=== PATIENT | male | born 1990 | race Caucasian/White ===

== ENCOUNTER 2023-01-15 03:29 | Observation (INO) | payer OTHER ==
--- OUTSIDE RECORDS SUMMARY | 2023-01-15 03:32 | XMS REPORT | Continuity of Care Document ---
:[address] [facility] t Address [address] [place] [address] [place] [id number] Care Team Providers Name Role Phone Asked, No Pcp Primary Care Physician Unavailable Therapy, Pcp Covid Infusion Attending Clinician Unavailable Cornell Beach MD Attending Clinician CORNELL BEACH Attending Clinician Unavailable Doctor Unassigned, [place] Attending Clinician Unavailable Bhargav DRAPER, Constance Martinez Attending Clinician SARAH SAXENA Attending Clinician Unavailable SARAH SAXENA Attending Clinician Unavailable YOUNG BOLES Attending Clinician Unavailable Payers Payer Name Policy Type Policy Effective Date Expiration Date Sour ce Number AETNAAETNA [id number] 2020 University of COMMERCIAL OUT 00:00:00 [facility] [id number] -Jenelle Formerly [facility] - [id number] 2016 OUT OF STATE 240 00:00:00 Problems Condition Condition Condition Status Onset Resolution Last Treating Co mments Source Name Details Category Date Date Treatment Clinician Date BEENA BEENA Disease Active Univers (obstructi (obstructi 7-13 it y of ve sleep ve sleep 00:00: [place] apnea) apnea) 00 [facility] Hx of left Hx of left Disease Active U nivers knee knee 7-13 ity of surgery surgery 00:00: [place] [address] Medical Branch Allergies, Adverse Reactions, Alerts Allergy Allergy Status Severity Reaction(s) Onset Inactive Treating Comm ents Source Name Type Date Date Clinician NO KNOWN Drug Active Univers ALLERGIE Class ity of S [facility] Social History Social Habit Start Date Stop Date Quantity Comments Source Exposure to Yes University of SARS-CoV-2 [facility] (event) Branch Tobacco use and 2021-02-14 2021-02-14 Never used Universit y of exposure 00:00:00 00:00:00 [facility] Alcohol intake 2021-02-14 2021-02-14 Current drinker Unive rsity of 00:00:00 00:00:00 of alcohol [facility] (finding) Branch History of 2020-09-17 Cigarette Smoker Universi ty of tobacco use 00:00:00 [facility] Sex Ass[birth year] At [birth year] [facility] 00:00:00 00:00:00 Smoking Status Start Date Stop Date Source Tobacco smoking [facility] consumption unknown Former smoker 2021-02-14 00:00:00 2021-02-14 [place] [facility] [place] 00:00:00 [facility] Medications Ordered Filled Start Stop Current Ordering Indication Dosage Frequency Signature Comments Components Source Medication Medication Date Date Medication? Clinician (SIG) Name Name casirivimab 2020- No [id number] 1200mg 1,200 mg, Univers -imdevimab 07-12 IV ity of 1200 mg in 18:15: 16:50 Infusion, [place] 60 mL NS 00 :00 ONCE, Medical MINI-BAG Administer Branc h over 20 Minutes, Lori 07/12/21 at 1315, For 1 dose
Ad manager land as an IV infusion via pump or gravity through an intravenou s line containing a sterile, in-line or add-on 0.2-micron polyethers ulfone (PES) filter. Stable 36 hours refrigerat ed; 4 hours at room temperatur e.
benzonatate Yes Method i (TESSALON) 8-23 st 100 MG 00:00: Hospita capsule 00 l benzonatate Yes Method i (TESSALON) 8-23 st 100 MG 00:00: Hospita capsule 00 l azithromyci Yes 250mg Q.5D Take 250 M ethodi n 8-[address] (ZITHROMAX) 00:00: mouth 2 Hos jennifer 250 MG 00 (two) l tablet times a day. albuterol Yes INHALE ONE Me thodi (ACCUNEB) 8-20 (1) VIAL st 2.5 mg /3 00:00: VIA Hospita mL (0.083 00 NEBULIZER l %) EVERY 2 TO nebulizer 4 HOURS solution NEEDED FOR SHORTNESS OF BREATH AND WHEEZING. azithromyci 0 Yes 250mg Q.5D Take 250 M ethodi n 8-[address] (ZITHROMAX) 00:00: mouth 2 Hos jennifer 250 MG 00 (two) l tablet times a day. budesonide Yes INHALE ONE M ethodi (PULMICORT) 8-20 (1) VIAL st 0.25 mg/2 00:00: VIA Hospita mL 00 NEBULIZER l nebulizer IN THE solution MORNING AND EVENING. methylPREDN Yes take as Met hodi ISolone 8-[address] (MEDROL 00:00: Hospita DOSEPAK) 4 00 l mg tablet ivermectin Yes TAKE 9 Metho di (STROMECTOL 8-[address] ) 3 mg 00:00: MOUTH ON Hospita tablet 00 DAY 1 AND l 9 ON DAY 3. budesonide Yes INHALE ONE M ethodi (PULMICORT) 8-20 (1) VIAL st 0.25 mg/2 00:00: VIA Hospita mL 00 NEBULIZER l nebulizer IN THE solution MORNING AND EVENING. methylPREDN Yes take as Met hodi ISolone 8-[address] (MEDROL 00:00: Hospita DOSEPAK) 4 00 l mg tablet ivermectin Yes TAKE 9 Metho di (STROMECTOL 8-[address] ) 3 mg 00:00: MOUTH ON Hospita tablet 00 DAY 1 AND l 9 ON DAY 3. albuterol Yes INHALE ONE Me thodi (ACCUNEB) 8-20 (1) VIAL st 2.5 mg /3 00:00: VIA Hospita mL (0.083 00 NEBULIZER l %) EVERY 2 TO nebulizer 4 HOURS solution NEEDED FOR SHORTNESS OF BREATH AND WHEEZING. No known No Univers medications [facility] No known No [facility] Vital Signs Vital Name Observation Time Observation Value Comments Source Systolic blood 2021-07-12 17:51:00 108 mm[Hg] Univer sity of pressure [facility] Diastolic blood 2021-07-12 17:51:00 72 mm[Hg] Unive rsity of [facility] Heart rate 2021-07-12 17:51:00 77 /min [facility] Body temperature 2021-07-12 17:51:00 36.5 Ileana [facility] Respiratory rate 2021-07-12 17:51:00 20 /min [facility] Oxygen saturation in 2021-07-12 17:51:00 93 /min [facility] Arterial blood by [facility] Pulse oximetry Branch Body height 2021-07-12 16:15:[address] [facility] Body weight 2021-07-12 16:15:[address] [facility] BMI 2021-07-12 16:15:00 34.67 kg/m2 [facility] Body height 2021-07-10 15:02:00 188 cm [facility] Body weight 2021-07-10 15:02:00 122.471 kg [facility] BMI 2021-07-10 15:02:00 34.67 kg/m2 [facility] Procedures Procedure Date / Time Performed Performing Clinician [facility] CONSENT/REFUSAL FOR 2021-07-12 05:01:00 Doctor Unassigned, No Un [facility] DIAGNOSIS AND Name [facility] TREATMENT Plan of Care Planned Activity Planned Date Details Comments Source Future Scheduled 2022-10-29 [facility] 00:09:17 (#1) [code = COVID-19 VACCINE (#1)] Future Scheduled 2022-10-29 INFLUENZA VACCINE Method [facility] Test 00:09:17 [code = INFLUENZA VACCINE] Future Scheduled 2021-09-20 [facility] 10:30:18 (1) [code = COVID-19 VACCINE (1)] Future Scheduled 2021-09-20 [facility] 10:30:18 screening (procedure) [code = 044064239] Future Scheduled 2021-09-20 INFLUENZA VACCINE Method [facility] Test 10:30:18 [code = INFLUENZA VACCINE] Encounters Start End Encounter Admission Attending Care Care Encounter Source Date/Time Date/Time Type Type Clinicians Facility Department ID 2021-07-12 2021-07-12 Nurse Therapy, Pcp Covid Infusion [facility] [id number] Univers 11:06:03 12:06:03 Visit BayleeArielip Boris PRIMARY [id number] ity of CARE [id number] [place] XI[place] [id number] Mn dical [address] [place] [address] 2021-07-12 2021-07-12 Outpatient R BAYLEE [facility] [id number] Univers 11:00:00 11:00:00 CORNELL randolph [facility] 2021-07-12 2021-07-12 Orders Doctor CHARIS [id number] Univers 00:00:00 00:00:00 Only Unassigned, HÉCTOR [id number] ity of [place] [facility] [id number] Job as [phone] [address] 2021-07-10 2021-07-10 Virtual [place], [id number] Methodi 09:56:05 11:45:59 Urgent Constance Martinez [id number] [facility] [id number] Hospit [id number] l .8 2021-06-13 2021-06-13 Outpatient R SARAH SAXENA [facility] [id number] Univers 16:00:00 16:00:00 SARAH SAXENA [facility] 2021-04-11 2021-04-11 Outpatient R JORGE SAXENACTJoshua [facility] [id number] Univers 13:30:00 13:30:00 SARAH SAXENA [facility] 2021-04-11 2021-04-11 [facility] [id number] Univers 10:00:00 10:00:00 SARAH SAXENA [facility] 2021-03-12 2021-03-12 Outpatient R JORGE SAXENACTJoshua [facility] [id number] Univers 19:30:00 19:30:00 [facility]AH [facility] 2021-03-09 2021-03-09 Outpatient R SARAH SAXENA [facility] [id number] Univers 11:00:00 11:00:00 SARAH SAXENA [facility] 2021-02-14 2021-02-14 Outpatient R JORGE SAXENACTJoshua [facility] [id number] Univers 15:00:00 15:00:00 JORGE SAXENACTJoshua [facility] 2021-01-31 2021-01-31 Outpatient R REYMUNDORAFAEL [facility] [id number] Univers 19:30: 19:30:00 [facility] 2021-01-29 2021-01-29 Outpatient R ELVI [facility] [id number] Univers 08:00:00 08:00:00 YOUNG [facility] 2021-01-17 2021-01-17 Outpatient [facility] [id number] Univers 19:30: 19:30:00 JORGE SAXENACTJoshua [facility] 2021-01-15 2021-01-15 Outpatient R [facility] [id number] Univers 15:30:00 15:30:00 [facility] 2020-12-27 2020-12-27 Outpatient R REYMUNDOJORGE HALLCTJoshua [facility] [id number] Univers 13:00:00 13:00:00 REYMUNDORAFAEL [facility] Results This patient has no known results.
[2023-01-15] MEDS ORDERED: KETOROLAC 30 MG/ML INJ ONE ×2 (04:33→11:17)
[2023-01-15] MEDS ORDERED: NA CHLORIDE 0.9% 1,000 ML ONE (04:33)
[2023-01-15] MEDS ORDERED: ONDANSETRON 4 MG/2 ML VIAL ONE ×2 (04:33→10:16)
[2023-01-15] MEDS ORDERED: MORPHINE 4 MG/ML SYR ONE (04:33)
[2023-01-15 04:46] LABS: Absolute Lymphocytes (CBC) 1.9 K/uL (0.7-4.9); Lymphocytes % 20.9 % (15.3-44.8); MCV 88.4 fL (80-100); MPV 7.3 fL (7.6-11.3); RBC Red Blood Cell Count 4.97 M/uL (4.33-5.43)
[2023-01-15 05:04] LABS: Bilirubin Total 0.3 mg/dL (0.2-1.0); Potassium 4.2 mmol/L (3.5-5.1); Protein, Total 7.3 g/dL (6.4-8.2)
[2023-01-15] MEDS ORDERED: PIPERACIL/TAZO 4.5 GM VIAL IV ONE (06:16)
[2023-01-15] MEDS ORDERED: NA CHLORIDE 0.9% 100 ML ONE (06:17)
[2023-01-15 06:41] LABS: Urine Blood Negative (Negative); Urine Glucose Negative (Negative); Urine Protein Negative (Negative); Urine pH 5.5 (5.0-7.0)
[2023-01-15 06:51] LABS: SARS-CoV-2 Antigen Rapid Res Negative (Negative)
--- NOTE | 2023-01-15 07:05 | ER ---
Nurse's Notes [facility] Name: Willis Celestin Age: 32 yrs Sex: Male : 1990 Arrival Date: 01/15/2023 Time: 03:32 Bed 5 Private MD: Diagnosis: Acute appendicitis with localized peritonitis Presentation: 01/15 03:49 Chief complaint: Patient states: I am having some pain in my right lower quadrant that kd3 started about 2 am. I took some Pepto and gas ex and have had no relief. It is sharp. Coronavirus screen: Vaccine status: Patient reports being unvaccinated. Ebola Screen: No symptoms or risks identified at this time. Initial Sepsis Screen: Does the patient meet any 2 criteria? No. Patient's initial sepsis screen is negative. Does the patient have a suspected source of infection? No. Patient's initial sepsis screen is negative. Risk Assessment: Do you want to hurt yourself or someone else? Patient reports no desire to harm self or others. Onset of symptoms was January 15, 2023. 03:49 Method Of Arrival: Ambulatory kd3 03:49 Acuity: RIO 3 kd3 Triage Assessment: 03:50 General: Appears uncomfortable, Behavior is calm, cooperative. Pain: Complains of pain kd3 in right lower quadrant. GI: Abdomen is non-distended. Historical: - Allergies: 03:50 No Known Allergies; kd3 - Home Meds: 03:50 None [Active]; kd3 - PMHx: 03:50 None; kd3 - Immunization history:: Adult Immunizations up to date. - Social history:: Smoking status: Patient denies any tobacco usage or history of. - Family history:: not pertinent. Screenin:50 Abuse screen: Denies threats or abuse. Denies injuries from another. Nutritional ha1 screening: No deficits noted. Tuberculosis screening: No symptoms or risk factors identified. 06:54 [facility] ED Fall Risk Assessment (Adult) Score/Fall Risk Level 0 - 2 = Low Risk. as6 Assessment: 03:49 General: Appears uncomfortable, Behavior is calm, cooperative. Pain: Complains of pain ha1 in abdomen Pain does not radiate. Pain currently is 10 out of 10 on a pain scale. Quality of pain is described as throbbing, Alleviated by medications. Neuro: Level of Consciousness is awake, alert, obeys commands, Oriented to person, place, time. Cardiovascular: Patient's skin is warm and dry. Respiratory: Airway is patent Respiratory effort is even, unlabored, Respiratory pattern is regular, symmetrical. GI: Abdomen is non-distended, obese, Bowel sounds present X 4 quads. Abd is soft and non tender X 4 quads. Reports constipation, nausea. : No signs and/or symptoms were reported regarding the genitourinary system. EENT: No deficits noted. No signs and/or symptoms were reported regarding the EENT system. Derm: Skin is pink, warm \T\ dry. Musculoskeletal: Range of motion: intact in all extremities. 04:49 Reassessment: Patient and/or family updated on plan of care and expected duration. Pain ha1 level reassessed. Patient is alert, oriented x 3, equal unlabored respirations, skin warm/dry/pink. Patient states symptoms have improved. 05:26 Reassessment: Patient and/or family updated on plan of care and expected duration. Pain ha1 level reassessed. Patient is alert, oriented x 3, equal unlabored respirations, skin warm/dry/pink. back from CT Patient states feeling better. Patient states symptoms have improved. 06:25 Reassessment: Patient and/or family updated on plan of care and expected duration. Pain ha1 level reassessed. Patient is alert, oriented x 3, equal unlabored respirations, skin warm/dry/pink. Patient states feeling better. Patient states symptoms have improved. Vital Signs: 03:49 BP 141 / 74; Pulse 83; Resp 19; Temp 98.7(O); Pulse Ox 98% on R/A; Weight 133.81 kg; kd3 Height 6 ft. 2 in. (187.96 cm); Pain 7/10; 04:30 BP 113 / 53; Pulse 73; Resp 18 S; Pulse Ox 98% on R/A; ha1 05:10 BP 134 / 78; Pulse 78; Resp 16 S; Pulse Ox 97% on R/A; ha1 06:54 BP 119 / 73; Pulse 81; Resp 18 S; Pulse Ox 97% on R/A; as6 03:49 Body Mass Index 37.88 (133.81 kg, 187.96 cm) kd3 ED Course: 03:32 Patient arrived in ED. ja2 03:39 Alexis Menendez MD is Attending Physician. rt 03:50 Triage completed. kd3 03:50 Arm band placed on. kd3 03:50 Patient has correct armband on for positive identification. Bed in low position. Call ha1 light in reach. Side rails up X 1. 04:14 Milka Card RN is Primary Nurse. ha1 04:15 Inserted saline lock: 20 gauge in right antecubital area, using aseptic technique. ha1 04:47 CMP Sent. ha1 04:47 Lipase Sent. ha1 04:47 CBC with Diff Sent. ha1 06:32 SARS RAPID Sent. ha1 07:04 Jesus Barnes MD is Hospitalizing Provider. rt Administered Medications: 04:35 Drug: NS 0.9% 1000 ml Route: IV; Rate: 1 bolus; Site: right antecubital; ha1 04:36 Drug: Zofran (Ondansetron) 4 mg Route: IVP; Site: right antecubital; ha1 05:00 Follow up: Response: No adverse reaction ha1 04:39 Drug: Ketorolac 30 mg Route: IVP; Site: right antecubital; ha1 05:00 Follow up: Response: No adverse reaction ha1 04:46 Drug: morphine 4 mg Route: IVP; Infused Over: 4 mins; Site: right antecubital; ha1 05:10 Follow up: Response: No adverse reaction; Pain is decreased; RASS: Alert and Calm (0) ha1 06:25 Drug: Zosyn (piperacillin-tazobactam) 4.5 grams Route: IVPB; Infused Over: 60 mins; ha1 Site: right antecubital; Outcome: 07:05 Decision to Hospitalize by Provider. rt 10:38 Patient left the ED. hb Signatures: Anna Sullivan RN RN Bernie Winter2 Edmund Renner RN RN as6 Lisseth Figueroa RN RN kd3 Milka Card RN RN ha1 Alexis Menendez MD MD rt
--- NOTE | 2023-01-15 07:05 | EDPHYS ---
Physician Documentation [facility] Name: Willis Celestin Age: 32 yrs Sex: Male : 1990 Arrival Date: 01/15/2023 Time: 03:32 Bed 5 Private MD: ED Physician Alexis Menendez HPI: 01/15 04:51 This 32 yrs old Male presents to ER via Ambulatory with complaints of Abdominal Pain, rt Constipation. 04:51 The patient presents with abdominal pain. Patient presents to the ED with right lower rt quadrant pain starting about 2 AM. It woke him up from the sleep. Sharp in nature, radiates laterally. Reports nausea without vomiting. Denies other acute complaints at this time, symptoms are moderate severity, no other aggravating or elevating factors.. Historical: - Allergies: 03:50 No Known Allergies; kd3 - Home Meds: 03:50 None [Active]; kd3 - PMHx: 03:50 None; kd3 - Immunization history:: Adult Immunizations up to date. - Social history:: Smoking status: Patient denies any tobacco usage or history of. - Family history:: not pertinent. ROS: 04:51 Constitutional: Negative for fever, chills, and weight loss, Cardiovascular: Negative rt for chest pain, palpitations, and edema, Respiratory: Negative for shortness of breath, cough, wheezing, and pleuritic chest pain, : Negative for injury, bleeding, discharge, and swelling, MS/Extremity: Negative for injury and deformity, Skin: Negative for injury, rash, and discoloration, Neuro: Negative for headache, weakness, numbness, tingling, and seizure, Psych: Negative for depression, anxiety, suicide ideation, homicidal ideation, and hallucinations. 04:51 Abdomen/GI: Positive for abdominal pain, nausea. Exam: 04:51 Constitutional: This is a well developed, well nourished patient who is awake, alert, rt and in no acute distress. Chest/axilla: Normal chest wall appearance and motion. Nontender with no deformity. No lesions are appreciated. Cardiovascular: Regular rate and rhythm with a normal S1 and S2. No gallops, murmurs, or rubs. Normal PMI, no JVD. No pulse deficits. Respiratory: Lungs have equal breath sounds bilaterally, clear to auscultation and percussion. No rales, rhonchi or wheezes noted. No increased work of breathing, no retractions or nasal flaring. MS/ Extremity: Pulses equal, no cyanosis. Neurovascular intact. Full, normal range of motion. Neuro: Awake and alert, GCS 15, oriented to person, place, time, and situation. Cranial nerves II-XII grossly intact. Motor strength 5/5 in all extremities. Sensory grossly intact. Cerebellar exam normal. Normal gait. Psych: Awake, alert, with orientation to person, place and time. Behavior, mood, and affect are within normal limits. 04:51 Abdomen/GI: Right lower quadrant tenderness with mild guarding, no rebound, no distention no costovertebral angle tender. Vital Signs: 03:49 BP 141 / 74; Pulse 83; Resp 19; Temp 98.7(O); Pulse Ox 98% on R/A; Weight 133.81 kg; kd3 Height 6 ft. 2 in. (187.96 cm); Pain 7/10; 04:30 BP 113 / 53; Pulse 73; Resp 18 S; Pulse Ox 98% on R/A; ha1 05:10 BP 134 / 78; Pulse 78; Resp 16 S; Pulse Ox 97% on R/A; ha1 06:54 BP 119 / 73; Pulse 81; Resp 18 S; Pulse Ox 97% on R/A; as6 03:49 Body Mass Index 37.88 (133.81 kg, 187.96 cm) kd3 MDM: 04:01 Patient medically screened. rt 07:05 Differential diagnosis: Bowel obstruction, appendicitis, cholecystitis, pyelonephritis, rt nephrolithiasis. Data reviewed: vital signs, nurses notes, lab test result(s), radiologic studies. Consideration of Admission/Observation Patient was admitted/placed on observation. Management of patient was discussed with the following: Sprinkling System Irrigator: Surgeon will evaluate patient for operation. I considered the following discharge prescriptions or medication management in the emergency department Medications were administered in the Emergency Department. See MAR. Counseling: I had a detailed discussion with the patient and/or guardian regarding: the historical points, exam findings, and any diagnostic results supporting the discharge/admit diagnosis, radiology results, the need for further work-up and treatment in the hospital. Response to treatment: the patient's symptoms have markedly improved after treatment. 01/15 04:09 Order name: CBC with Diff rt 01/15 04:09 Order name: CMP rt 01/15 04:09 Order name: Lipase rt 01/15 04:09 Order name: Urine Dipstick-Ancillary (obtain specimen); Complete Time: 06:53 rt 01/15 04:09 Order name: Urine Microscopic Only rt 01/15 04:09 Order name: CT Abd/Pelvis - IV Contrast Only rt 01/15 04:51 Order name: CBC with Automated Diff; Complete Time: 06:05 EDMS 01/15 05:04 Order name: Comprehensive Metabolic Panel; Complete Time: 06:05 EDMS 01/15 05:04 Order name: Lipase; Complete Time: 06:05 EDMS 01/15 06:05 Order name: SARS RAPID rt 01/15 06:41 Order name: Urine Dipstick-Ancillary EDMS 01/15 06:51 Order name: SARS-COV-2 Antigen Rapid EDMS 01/15 07:30 Order name: Urine Microscopic Only EDMS Administered Medications: 04:35 Drug: NS 0.9% 1000 ml Route: IV; Rate: 1 bolus; Site: right antecubital; ha1 04:36 Drug: Zofran (Ondansetron) 4 mg Route: IVP; Site: right antecubital; ha1 05:00 Follow up: Response: No adverse reaction ha1 04:39 Drug: Ketorolac 30 mg Route: IVP; Site: right antecubital; ha1 05:00 Follow up: Response: No adverse reaction ha1 04:46 Drug: morphine 4 mg Route: IVP; Infused Over: 4 mins; Site: right antecubital; ha1 05:10 Follow up: Response: No adverse reaction; Pain is decreased; RASS: Alert and Calm (0) ha1 06:25 Drug: Zosyn (piperacillin-tazobactam) 4.5 grams Route: IVPB; Infused Over: 60 mins; ha1 Site: right antecubital; Disposition Summary: 01/15/23 07:05 Hospitalization Ordered Hospitalization Status: Observation rt Provider: Jesus Barnes rt Location: Operating Room rt Condition: Stable rt Problem: new rt Symptoms: have improved rt Bed/Room Type: Standard rt Room Assignment: rt Diagnosis - Acute appendicitis with localized peritonitis rt Discharge Instructions: - Discharge Summary Sheet bd Forms: - SBAR form bd - Medication Reconciliation Form rt Signatures: Dispatcher [employer] EDMS Henry, Lisseth, RN RN kd3 Milka Card RN RN ha1 Alexis Menendez MD MD rt
[2023-01-15 07:30] LABS: Urine Bacteria None Seen /HPF (<20); Urine Mucus Slight /HPF (None Seen); Urine RBC <5 /HPF (None Seen)
[2023-01-15] MEDS ORDERED: MORPHINE 2 MG/ML SYR IV PRN (08:19)
[2023-01-15] MEDS ORDERED: Ringers Lactate 1,000 ML IV SCH (08:19)
[2023-01-15] MEDS ORDERED: Ringers Lactate 1,000 ML IV ONE (09:05)
[2023-01-15] MEDS ORDERED: SUCCINYLCHOLINE 20 MG/ML (10 ML) IV ONE (10:12)
[2023-01-15] MEDS ORDERED: FENTANYL CITR 100 MCG/2 ML ONE (10:15)
[2023-01-15] MEDS ORDERED: propofoL 200 MG/20 ML VIAL IV ONE (10:15)
[2023-01-15] MEDS ORDERED: LIDOCAINE 2% MPF 5 ML VIAL ONE (10:15)
[2023-01-15] MEDS ORDERED: MIDAZOLAM HCL 2 MG/2 ML INJ ONE (10:16)
[2023-01-15] MEDS ORDERED: GLYCOPYRROLATE 0.2 MG/ML SYR ONE (10:16)
[2023-01-15] MEDS ORDERED: ROCURONIUM 50 MG/5 ML VIAL IV ONE (10:16)
[2023-01-15] MEDS ORDERED: NEOSTIGMINE 1 MG/ML -10 ML VIAL ONE (10:19)
[2023-01-15] MEDS ORDERED: Mastisol Adhesive Liq ONE (10:33)
[2023-01-15] MEDS ORDERED: ONDANSETRON 4 MG/2 ML VIAL IV PRN (11:24)
[2023-01-15] MEDS ORDERED: HYDROCODONE/APAP 5/325 MG TAB PO PRN (11:24)
[2023-01-15] MEDS ORDERED: HYDROMORPHONE HCL 1 MG/ML INJ IV PRN (11:24)
[2023-01-15 12:00] VITALS: O2SAT 96
[2023-01-15] MEDS ORDERED: NA CHLORIDE 0.9% 1,000 ML IV SCH (12:00)
--- NOTE | 2023-01-15 12:06 | P.BOP ---
Preoperative diagnosis: Acute appendicitis, peritonitis Postoperative diagnosis: same Primary procedure: Laparoscopic appendectomy Estimated blood loss: <10cc Specimen: clarissa Findings: as above, see dicta Anesthesia: General Complications: None Transferred to: Recovery Room Condition: Good
--- NOTE | 2023-01-15 12:07 | P.BOP ---
Preoperative diagnosis: Acute appendicitis, peritonitis Postoperative diagnosis: same Primary procedure: Laparoscopic appendectomy Estimated blood loss: <10cc Specimen: clarissa Findings: as above Anesthesia: General Complications: None Transferred to: Recovery Room Condition: Good
[2023-01-15] MEDS: CEFOXITIN 1 GM in NA CHLORIDE 0.9% 50 ML IVPB SCH ×2 (12:21→17:09)
[2023-01-15 12:28] VITALS: BMI 37.8
--- NOTE | 2023-01-15 13:42 | RAD REPORT ---
EXAM DESCRIPTION: CT - Abdomen Pelvis W Contrast - 01/15/2023 6:52 am CLINICAL HISTORY: 32 years Male RLQ PAIN COMPARISON: None TECHNIQUE: CT of the abdomen and pelvis with intravenous contrast. All CT scans at this facility use dose modulation, iterative reconstruction, and/or weight based dosi ng when appropriate to reduce radiation dose to as low as reasonably achievable. FINDINGS: Lower thorax: Lung bases are clear Abdomen: Stomach: Within normal limits Liver: No focal lesions. Hepatic steatosis. No intrahepatic ductal distention. Gallbladder: Nondistended Pancreas: Atrophic changes. Spleen: Within normal limits Right kidney: No hydronephrosis. No focal lesion. Left kidney: No hydronephrosis. No focal lesion. Adrenal glands: Within normal limits Vascular structures: Mild atherosclerosis of the abdominal aorta and major branches. Nodes: No lymphadenopathy by size criteria Pelvis: Small bowel: No significant distention. Appendix: Dilated appendiceal tip measuring up to 10 mm with multiple appendicoliths and mild adjacen t stranding. No adjacent rim-enhancing collections. Colon: No distention or acute pericolonic edema. Peritoneum: No free intraperitoneal fluid or air. Bones: No acute bone findings. Bladder: Unremarkable. Reproductive organs: No acute findings. Soft tissues: Small fat-containing umbilical hernia. IMPRESSION: 1. Dilated appendiceal tip measuring up to 10 mm with multiple appendicoliths and mild adjacent stranding, concerning for acute appendicitis. No adjacent rim-enhancing collections. No amy e air. 2. Hepatic steatosis. Electronically signed by: Juvneal Dawkins MD 01/15/2023 5:50 AM CHAINMAN Due to temporary technical issues with the PACS/Fluency reporting system, reports are being signed by the in house radiologists without review as a courtesy to insure prompt reporting. The interpreting radiologist is fully responsible for the content of the report.
[2023-01-15] MEDS ORDERED: INFLUENZA VACCINE (for 6+ mo) 0.5 ML DOSE IMVAC ONE (14:00)
[2023-01-15 16:36] VITALS: BP 118/68; TEMP 97.1
--- NOTE | 2023-01-15 19:50 | HP ---
Date of Admission: 01/15/2023 Diagnosis: Acute appendicitis. History Of Present Illness: This is the case of a 32-year-old patient who woke up this morning with right lower quadrant tenderness associated with nausea. The pain was unusual. It started periumbili nick, moved to the right lower quadrant. He denies any dysuria, hematuria, hematochezia, or melena. Denies any recent traveling out of the country. Denies any family member sick at home. He ate yes terday for dinner some Tacos, but his was eating the same and did not get sick. This morning th e pain was getting worse, so he decided to come to the ER. Imaging was done, showing acute appendici tis. Surgical consult was obtained. Past Medical History: None. Allergies: NONE. Past Surgical History: Include bilateral knee surgery and pilonidal cysts. Social History: He does not smoke. He does not drink alcohol. Family History: Noncontributory. Review of Systems: See above. Ten points otherwise unremarkable. Physical Examination: General: Patient is awake, alert. HEENT: Pupils are equal and reactive. Anicteric. Neck: Supple. Chest: Clear. Heart: S1, S2. Abdomen: Right lower quadrant tenderness with Rovsing sign and psoas signs positive. Genitalia/Rectal: Deferred. Extremities: Good capillary refill. Neuro: Cranial nerves 2 through 12 grossly within normal limits. Laboratory Data: Blood work shows WBC count of 9, hemoglobin of 15, platelets of 265. Potassium is 4.2, creatinine is 0.94. CAT scan of the abdomen and pelvis consistent with acute appendicitis per r adiologist. Assessment: This is a 32-year-old patient with acute appendicitis. The benefits, alternatives, and risks of laparoscopic possible open appendectomy fully explained which include, but not limited to in fection, bleeding, damage to adjacent structures, anesthesia complication, CA, and even . He al so understands this may not relieve any symptoms. He might need more than one surgical intervention. He understands importance also of losing some weight. The patient was booked in OR. /MODL Voice ID: [id number]
--- NOTE | 2023-01-15 22:41 | OP ---
Date of Procedure: 01/15/2023 Surgeon: Jesus Barnes MD Preoperative Diagnosis: Acute appendicitis. Postoperative Diagnoses: Acute appendicitis and peritonitis. Procedure: Laparoscopic appendectomy. Anesthesia: General plus local. Complications: None. Indications: This is a case of a 32-year-old patient WHO comes to us early this morning with acute a ppendicitis, found to have peritonitis. So the patient fully explained laparoscopic possible open ap pendectomy with benefits, alternatives, and risks including, but not limited to infection, bleeding, damage to adjacent structures, anesthesia complication, MO, and even . He also understands this might not relieve any symptoms. He might need more than one surgical intervention. He understood, signed a consent. Procedure In Detail: The patient was brought to the operating room and placed in supine position. A nesthesia was done without complication. Abdominal area was prepped and draped in the usual sterile fashion. Marcaine 0.5% was injected for local anesthetic, followed by sharp incision of the skin in the infraumbilical region. Incision was carried down to fascia, which was opened under direct vision . Peritoneum was encountered and opened under direct vision. Vicryl #1 placed inside the fascia. H asson trocar was carefully introduced and pneumoperitoneum was obtained. I placed 2 more trocars, 5 mm each one of them, 1 in the suprapubic area and another 1 in the left lower quadrant under direct v isualization. This allowed me to visualize the area of the appendix. It looks inflamed. The base o f the appendix seems to be spared, but there is inflammation in that area and some of that appendix i s adhered already to the anterior abdominal wall causing peritonitis. We created a window in the bas e of the appendix, transected that with an Endo ZENIA 45 mm nonvascular. The area of the mesoappendix had to be ligated, it is so thick and swollen that I believe it will be safer at this time to just go carefully with the LigaSure since jayla may not properly close this and create hemostasis that we want. So we have a LigaSure to do the mesoappendix and the adhesions. The area was irrigated. Appe ndix removed from abdominal cavity using the Endo Catch through the umbilical incision. The area was irrigated and suctioned and inspected once again. No bowel leak. No bleeding. At that moment, I p roceeded to remove the trocars under direct vision, deflated pneumoperitoneum, closed the fascia with #1 Vicryl, irrigated subcutaneous tissue and closed that with 3-0 chromic and the skin with jayla. Sponge count and instrument counts were correct. The patient tolerated the procedure well. The pa tient was sent to recovery in stable condition. HOMA/CHERRY Voice ID: [id number] Report ID: [id number]
== END 2023-01-15 19:32 | disposition home or self-care (01) ==
LOC: ER 03:29 → DS 07:08 → 2ND 11:24
PROVIDERS: ADMIT Surgery; ATTEND Surgery
PROC: 0DTJ4ZZ Resection of Appendix, Percutaneous Endoscopic Approach (ICD-10-PCS; principal; 2023-01-15 10:15)
DX: K35.80 Unspecified acute appendicitis (principal); R11.0 Nausea; K65.9 Peritonitis, unspecified; Z20.822 Contact with and (suspected) exposure to COVID-19
CPT/HCPCS: 85025; 36415; 88304; 83690; 80053; 74177; 94010; 87811; 44970; Q9967; J2704; J2710; J0330; J2001; J2250; J3010; J7120; J7030 ×2; J0694 ×2; J2405 ×2; 81003; 81015; G0378